=== PATIENT | female | born 1970 | race Caucasian/White ===

== ENCOUNTER 2018-11-23 10:39 | Inpatient (IN) | payer BC ==
[2018-11-23] VITALS (10 sets, daily range): BP systolic 115–168; BP diastolic 63–85
[~2018-11-23] VITALS: Ht 165.1 cm; Wt 115.0 kg
--- NOTE | 2018-11-23 11:06 | PHYS DOC ---
Past Medical History Past Medical History: Asthma Past Surgical History: Tonsillectomy Additional Past Surgical Histo: LEFT KNEE ATHROSCOPY Alcohol Use: Occasionally Drug Use: None Adult General Chief Complaint Chief Complaint: ANKLE PROBLEM HPI HPI Patient is a 48 year old female was brought here by EMS for evaluation of right ankle injury. Patient said she was walking outside, slipped on the ice and her right ankles broke, not able to get up and put any weight on it. Patient denied any knee pain, no back pain, no hip pain. Patient denied any other injury. EMS was called, they gave her a total of 150 mcg of Fentanyl IV on route here. Patient just had some water this morning. Patient has history of asthma. She is not on any blood thinner. No previous allergy to anesthesia. Review of Systems Review of Systems Constitutional: Denies fever or chills [] Eyes: Denies change in visual acuity, redness, or eye pain [] HENT: Denies nasal congestion or sore throat [] Respiratory: Denies cough or shortness of breath [] Cardiovascular: No additional information not addressed in HPI [] GI: Denies abdominal pain, nausea, vomiting, bloody stools or diarrhea [] : Denies dysuria or hematuria [] Musculoskeletal:Positive for right ankle pain. Integument: Denies rash or skin lesions [] Neurologic: Denies headache, focal weakness or sensory changes [] Endocrine: Denies polyuria or polydipsia [] All other systems were reviewed and found to be within normal limits, except as documented in this note. Current Medications Current Medications Current Medications Medications (Trade) Dose Ordered Sig/Chapito Start Time Stop Time Status Last Admin Dose Admin Fentanyl Citrate (Fentanyl 2ml Vial) 50 mcg PRN Q1HR PRN 11/23/18 13:15 11/24/18 13:14 11/23/18 14:57 50 MCG Ondansetron HCl (Zofran) 4 mg PRN Q8HRS PRN 11/23/18 13:15 11/24/18 13:14 Propofol (Diprivan) 50 mg 1X ONCE 11/23/18 11:15 11/23/18 11:16 DC 11/23/18 11:58 50 MG Sodium Chloride 1,000 ml @ 75 mls/hr [id number] 11/23/18 13:08 11/24/18 13:07 11/23/18 19:17 75 MLS/HR Allergies Allergies Physical Exam Physical Exam Constitutional: Well developed, well nourished, no acute distress, non-toxic appearance. [] HENT: Normocephalic, atraumatic, bilateral external ears normal, oropharynx moist, no oral exudates, nose normal. [] Eyes: PERRLA, EOMI, conjunctiva normal, no discharge. [] Neck: Normal range of motion, no tenderness, supple, no stridor. [] Cardiovascular:Heart rate regular rhythm, no murmur [] Lungs & Thorax: Bilateral breath sounds clear to auscultation [] Abdomen: Bowel sounds normal, soft, no tenderness, no masses, no pulsatile masses. [] Skin: Warm, dry, no erythema, no rash. [] Back: No tenderness, no CVA tenderness. [] Extremities: Right ankle with obvious deformity consistent with fracture and dislocation, no open wound. There is good capillary refill in right toes, STRONG DORSALIS PEDIS PULSE, There is moderate soft tissue swelling. No evidence of compartment syndrome. There is no tender to palpation in proximal right leg. Neurologic: Alert and oriented X 3, normal motor function, normal sensory function, no focal deficits noted. [] Psychologic: Affect normal, judgement normal, mood normal. [] Current Patient Data Vital Signs Vital Signs Date Time Temp Pulse Resp B/P (MAP) Pulse Ox O2 Delivery O2 Flow Rate FiO2 11/23/18 11:55 94 15 168/71 2.0 100 14 2.0 101 14 2.0 89 13 2.0 94 9 93 20 90 11 91 13 92 14 92 14 11/23/18 11:17 99 Room Air 11/23/18 10:51 98.0 98.0 EKG EKG [] Radiology/Procedures Radiology/Procedures [facility] [address] [place] [address] IMAGING REPORT Signed PATIENT: CONSTANTIN HOUSTON ACCOUNT: [id number] : 1970 LOCATION: ER AGE: 48 SEX: F EXAM STATUS: PRE ER ORD. PHYSICIAN: TRIPP MCGUIRE DO REASON: right ankle injury, pt slipped on ice. PROCEDURE: ANKLE RIGHT 2V ANKLE RIGHT 2V History: PT STATES SHE SLIPPED ON ICE THIS AM, OBVIOUS DEFORMITY. . Comparison: None are available Oblique fracture of the distal fibula. Lateral displacement and angulation of the distal fragment. Fracture of the medial malleolus and possibly of the posterior malleolus of the distal tibia. There is displacement of the talus laterally relative to the tibia. The medial malleolar fragment is also displaced medially away from the tibia with the talus. There is also posterior displacement of the talus and malleolar fragments relative to the tibia. Degenerative changes are identified. Calcaneal enthesophyte. IMPRESSION: Bimalleolar or trimalleolar displaced fractures, with tibiotalar dislocation. Electronically signed by: Chava Paredes MD (11/23/2018 11:23 AM) [facility] DICTATED and SIGNED BY: CHAVA PAREDES MD DATE: 11/23/18 1120 [][facility] [address] [place], [place] [id number] IMAGING REPORT Signed PATIENT: CONSTANTIN HOUSTON ACCOUNT: [id number] : 1970 LOCATION: [address] [place] [address] AGE: 48 SEX: F EXAM STATUS: ADM IN ORD. PHYSICIAN: TRIPP MCGUIRE DO REASON: POST FRACTURE, DISLOCATION REDUCTION PROCEDURE: ANKLE RIGHT 2V ANKLE RIGHT 2V History: POST REDUCTION ANKLE. Comparison: Radiographs from 10:41 AM Partial reduction of the tibiotalar dislocation. There is mild residual lateral talar shift. Previously seen posterior talar shift has reduced. Trimalleolar fractures are identified. Chronic appearing ossicle dorsal to the talonavicular joint. IMPRESSION: Trimalleolar fractures. Partial tibiotalar reduction. Electronically signed by: Chava Paredes MD (11/23/2018 1:50 PM) [facility] DICTATED and SIGNED BY: CHAVA PAREDES MD DATE: 11/23/18 8218 Course & Med Decision Making Course & Med Decision Making Pertinent Labs and Imaging studies reviewed. (See chart for details) DISCUSSED WITH ORTHOPEDIC SURGEON PROJECT MANAGER/DESIGN MANAGER, DR. ARTIE VALDEZ, RECOMMENDED TO ADMIT PATIENT FOR DEFINITIVE ORIF. Dragon Disclaimer Dragon Disclaimer This electronic medical record was generated, in whole or in part, using a voice recognition dictation system. Departure Departure Impression: Primary Impression: Closed right ankle fracture Disposition: ADMITTED INPATIENT Admitting Physician: Nette Napoles Condition: STABLE Referrals: NO PCP (PCP) MODERATE SEDATION ASSESSMENT* RISKS/ALTERNATIVES Risks/Alternatives Risks and alternatives of this type of sedation and procedure discussed with: RISK/ALTERNATIVES: Patient H & P ON CHART H & P H & P on chart and reviewed for co-morbid conditions and appropriate labs. H&P ON CHART: Yes STATUS PREG STATUS ASSESSED: Yes MEDS/ALLERGIES REVIEWED Meds/Allergies Reviewed Medications and Allergies including time and route of recently administered narcotics and sedatives. MEDS/ALLERGIES REVIEWED: Yes ASA RATING ASA RATING: I AIRWAY ASSESSMENT Airway Assessment Airway patency, oral function limitations, presence of caps, crowns, dentures, partials, and ability to extend neck assessed. AIRWAY ASSESSMENT: Yes MALLAMPATI SCORE MALLAMPATI SCORE: II PRE-SEDATION ASSESSMENT PRE-SEDATION ASSESSMENT: Yes Splinting [PATIENT/GUARDIAN/FAMILY:"Patient"] informed of findings. The fractured dislocated right ankle was reduced by this physician by traction and manipulation, a posterior short leg splint with stir up was applied by this physician, ortho-glass material was used.. The splint is checked by this physician with good stabilization of the injury. Distal capillary refill {pe heart capillary fill: "normal"] and distal neurologic function [Neuro:"intact"] . Patient tolerated procedure well. Procedural Sedation Proc Sed Indication: right ankle fracture and dislocation. Consent: I have discussed with the patient and/or the patient bank representative the indication, alternatives, and the possible risks and /or complications of the planned procedure and the anesthesia methods. The patient and/or patient bank representative appear to understand and agree to proceed. Pre-Sedation Documentation and Exam: Patient was awake, alert, oriented, no acute distress, lung sound clear, heart with RRR, NO MURMUR. NO FOCAL NEUROLOGICAL DEFICIT. Airway Assessment: normal. Prior History of Anesthesia Complications: none. ASA Classification: 1 Sedation/ Anesthesia Plan: IV PROPOFOL AND FENTANYL Medications Used: see nursing notes. Monitoring and Safety: The patient was placed on a potline monitor and vital signs, pulse oximetry and level of consciousness were continuously evaluated throughout the procedure. The patient was closely monitored until recovery from the medications was complete and the patient had returned to baseline status. Respiratory therapy was on standby at all times during the procedure. (The following sections must be completed) Post-Sedation Vital Signs: [EDM.VS] Post-Sedation Exam: Patient was awake, alert, oriented, no focal neurological deficit, back to her preprocedure baseline. Complications: none. Vital Signs Vital Signs Date Time Temp Pulse Resp B/P (MAP) Pulse Ox O2 Delivery O2 Flow Rate FiO2 11/23/18 11:55 94 15 168/71 2.0 100 14 2.0 101 14 2.0 89 13 2.0 94 9 93 20 90 11 91 13 92 14 92 14 11/23/18 11:17 99 Room Air 11/23/18 10:51 98.0 98.0 TRIPP MCGUIRE DO Nov 23, 2018 11:06
[2018-11-23] MEDS ORDERED: ONDANSETRON PF 4 MG/2 ML VIAL. IV ONE (11:15)
[2018-11-23] MEDS ORDERED: PROPOFOL 10 MG/ML (20ML) VIAL. IV ONE (11:15)
[2018-11-23] MEDS ORDERED: fentaNYL PF VIAL 100 MCG/2 ML VIAL IV ONE ×2 (11:15→12:30)
[2018-11-23] MEDS ORDERED: IV NORMAL SALINE 1000ML BAG 1,000 ML IV ONE (11:15)
--- NOTE | 2018-11-23 11:26 | RAD ---
ANKLE RIGHT 2V History: PT STATES SHE SLIPPED ON ICE THIS AM, OBVIOUS DEFORMITY. . Comparison: None are available Oblique fracture of the distal fibula. Lateral displacement and angulation of the distal fragment. Fracture of the medial malleolus and possibly of the posterior malleolus of the distal tibia. There is displacement of the talus laterally relative to the tibia. The medial malleolar fragment is also displaced medially away from the tibia with the talus. There is also posterior displacement of the talus and malleolar fragments relative to the tibia. Degenerative changes are identified. Calcaneal enthesophyte. IMPRESSION: Bimalleolar or trimalleolar displaced fractures, with tibiotalar dislocation. Electronically signed by: Chava Paredes MD (11/23/2018 11:23 AM) [facility]
[2018-11-23] MEDS ORDERED: fentaNYL PF VIAL 100 MCG/2 ML VIAL IV PRN ×3 (13:15→20:30)
[2018-11-23] MEDS ORDERED: ONDANSETRON PF 4 MG/2 ML VIAL. IV PRN ×2 (13:15→16:45)
[2018-11-23] MEDS: IV NORMAL SALINE 1000ML BAG 1,000 ML IV SCH ×2 (13:39→19:17)
--- NOTE | 2018-11-23 13:53 | RAD ---
ANKLE RIGHT 2V History: POST REDUCTION ANKLE. Comparison: Radiographs from 10:41 AM Partial reduction of the tibiotalar dislocation. There is mild residual lateral talar shift. Previously seen posterior talar shift has reduced. Trimalleolar fractures are identified. Chronic appearing ossicle dorsal to the talonavicular joint. IMPRESSION: Trimalleolar fractures. Partial tibiotalar reduction. Electronically signed by: Chava Paredes MD (11/23/2018 1:50 PM) [facility]
--- NOTE | 2018-11-23 15:13 | PDOC2 ---
CONSULT Date of Consult Date of Consult DATE: 11/23/18 TIME: 14:59 Reason for Consult Reason for Consult: Displaced right ankle fracture dislocation Identification/Chief Complaint Chief Complaint Right ankle pain and deformity Source Source: Chart review, Patient History of Present Illness Reason for Visit: This 48-year-old slipped on ice in her driveway at 9:30 this morning, and describes immediate ankle pain and deformity. She was brought to the hospital by EMS. She had a closed reduction in the emergency room at approximately 11 AM. X-rays show satisfactory reduction although mildly incomplete. She denies any other pain or deformity. 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 She had a sip water about 7 AM but has not had anything to eat today. Past Medical History Past Medical History Asthma, hip pain, restless leg syndrome, her PCP is HERMELINDA MARQUEZ RN, [facility] in [facility] Pulmonary: Asthma Musculoskeletal: low back pain Past Surgical History Past Surgical History Left knee arthroscopy, she think she has some knee arthritis now. Tonsillectomy. Gallbladder. 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 She lives with her brother, [id number], 3 nieces, a nephew, and 2 foster children. They have multiple animals such as alpacas. She has chewed tobacco since about 18 years old. She does not use a cane or a walker. No cigarette smoking. Occasional alcohol. No recreational drug use. No Drugs: None Lives: with Family Current Problem List Problem List Problems Medical Problems: (1) Closed right ankle fracture Status: Acute Current Medications Current Medications Current Medications Fentanyl Citrate (Fentanyl 2ml Vial) 75 mcg 1X ONCE IV Last administered on at 11:17; Start 11/23/18 at 11:15; Stop 11/23/18 at 11:16; Status DC Ondansetron HCl (Zofran) 8 mg 1X ONCE IV Last administered on 11/23/18at 11:14 ; Start 11/23/18 at 11:15; Stop 11/23/18 at 11:16; Status DC Sodium Chloride 1,000 ml @ 1,000 mls/hr 1X ONCE IV Last administered on at 11:18; Start 11/23/18 at 11:15; Stop 11/23/18 at 12:14; Status DC Propofol (Diprivan) 50 mg 1X ONCE IV Last administered on 11/23/18at 11:58; Start 11/23/18 at 11:15; Stop 11/23/18 at 11:16; Status DC Fentanyl Citrate (Fentanyl 2ml Vial) 75 mcg 1X ONCE IV Last administered on at 13:38; Start 11/23/18 at 12:30; Stop 11/23/18 at 12:31; Status DC Ondansetron HCl (Zofran) 4 mg PRN Q8HRS PRN IV NAUSEA/VOMITING; Start 11/23/18 at 13:15; Stop 11/24/18 at 13:14 Fentanyl Citrate (Fentanyl 2ml Vial) 50 mcg PRN Q1HR PRN IV PAIN Last administered on 11/23/18at 14:57; Start 11/23/18 at 13:15; Stop 11/24/18 at 13:14 Sodium Chloride 1,000 ml @ 75 mls/hr [id number] IV Last administered on at 13:39; Start 11/23/18 at 13:08; Stop 11/24/18 at 13:07 Allergies Allergies: Coded Allergies: No Known Drug Allergies (Unverified , 11/23/18) ROS Review of System She has been having some low back pain recently and has an MRI of her low back scheduled. She's had quite a bit of right hip pain, but x-rays were normal. She is on diclofenac for that and the hip pain is getting somewhat better. She takes Cymbalta as well as the diclofenac for the hip pain. She takes gabapentin for restless leg syndrome. She takes Singulair and Advair for asthma. She uses cyclobenzaprine. Albuterol inhaler. Occasional irritable bowel symptoms, possibly diet related. She had blood in her stool once in 2011 felt related to a bacterial colitis and resolved. Occasional shortness of breath. Denies metal allergy. Can wear regular earrings, does not need hypoallergenic earrings. Eyes: No Double vision HEENT: No: Heacaches Hematological and Lymphatic: YES: Brusing (bruises easily); No: Blood Clots Respiratory: YES: Shortness of breath (with asthma, no change recently) Cardiovascular: No Chest Pain Gastrointestinal: Yes Diarrhea (occasional); No Nausea, No Vomiting, No Constipation Genitourinary: No Dysuria, No Hematuria Musculoskeletal: Yes Joint Pain, Yes Pain In: (low back, left knee) Physical Exam General: Alert, Cooperative, No acute distress HEENT: Atraumatic Lungs: Normal air movement Heart: Regular rate Abdomen: Soft Extremities: No clubbing, No cyanosis, No edema, Normal pulses, Other (the right ankle is in a splint. The skin is reported as intact. There is no gross deformity at this time. She can dorsiflex and plantar flex the toes and has intact sensation at the toes. She has a tape/Band-Aid on the great toe where she removed her great toenail.) Neuro: Normal speech, Normal tone, Sensation intact Psych/Mental Status: Mental status NL, Mood NL MUSCULOSKELETAL: Abnormal exam of right (ankle as above) Vitals VITALS Vital Signs Date Time Temp Pulse Resp B/P (MAP) Pulse Ox O2 Delivery O2 Flow Rate FiO2 11/23/18 14:57 Room Air 11/23/18 14:00 97.6 108 16 150/84 (106) 99 97.6 11/23/18 11:55 2.0 2.0 2.0 2.0 Images Images Reports reviewed, images independently reviewed. Initial x-rays showed a displaced right ankle fracture, and the reduction more clearly shows the trimalleolar component, with fractures medial malleolus, lateral malleolus and posterior malleolus. Assessment/Plan Assessment/Plan Displaced trimalleolar fracture of right lower leg, initial encounter for closed fracture [id number] Asthma I discussed options for treatment with her. We briefly discussed nonoperative treatment which is primarily historical for displaced trimalleolar ankle fractures. Nonoperative treatment would likely give a poor result with chronic deformity and arthritis. I described plate and screw fixation of the lateral malleolus, and screw fixation of the medial malleolus, and doubtful fixation of the posterior malleolus. I discussed the possible need of syndesmosis fixation although unlikely. We discussed the potential for surgery today, before swelling makes surgery difficult. I will reassess the soft tissues when she is asleep, and if it is too swollen today we may need to wait 10-14 days. We can also plan to wait a week or two but that delays her recovery and may make surgery more difficult. We discussed the risks of surgery, such as bleeding, infection, blistering and bruising, neurovascular injury, need for syndesmosis screw removal in 3-4 months if used, possible need for hardware removal in about a year, blood clots, arthritis, or other potential surgical or anesthetic complications. All of her questions about surgery were answered and she desires to proceed. I will schedule surgery for today. She agrees with this plan. ARTIE VALDEZ MD Nov 23, 2018 15:13
[2018-11-23 16:10] LABS: HEMATOCRIT 38.9 % (36.0-47.0); HEMOGLOBIN 12.9 g/dL (12.0-15.5); RED BLOOD COUNT 4.31 x10^6/uL (3.50-5.40); RED CELL DISTRIBUTION WIDTH 13.7 % (11.5-14.5)
[2018-11-23 16:26] LABS: ALBUMIN 3.1 g/dL (3.4-5.0); ALBUMIN/GLOBULIN RATIO 0.9 (1.0-1.7); CALCIUM 8.2 mg/dL (8.5-10.1); CREATININE 0.8 mg/dL (0.6-1.0); GFR 76.2; POTASSIUM 3.9 mmol/L (3.5-5.1); TOTAL BILIRUBIN 0.4 mg/dL (0.2-1.0); TOTAL PROTEIN 6.5 g/dL (6.4-8.2)
[2018-11-23] MEDS ORDERED: IV RINGERS,LACTATED 1000ML 1,000 ML IV SCH (16:34)
[2018-11-23] MEDS ORDERED: fentaNYL PF VIAL 250 MCG/5 ML VIAL ONE (16:42)
[2018-11-23] MEDS ORDERED: LIDOCAINE 1% PF 2 ML VIAL. ID PRN (16:45)
[2018-11-23] MEDS ORDERED: HYDROmorphone 2 MG/ML VIAL IV PRN (16:45)
[2018-11-23] MEDS ORDERED: BUPIVACAINE-EPI 0.25%-1:200000 MPF 30 ML VIAL. ONE (16:52)
--- NOTE | 2018-11-23 18:58 | PDOC1 ---
History and Physical Date of Admission Date of Admission DATE: 11/23/18 TIME: 18:57 History of Present Illness History of Present Illness Juani is a 48-year-old female, admit with ankle fracture, she slipped on ice in her driveway at 9:30 this morning, marked pain to the ER, Dr. Guy was able to reduce, still painful, no prior fracture, prev. 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 [employer], w Past Medical History Pulmonary: Asthma Musculoskeletal: low back pain Past Surgical History Past Surgical History: Arthroscopy, Cholecystectomy, Tonsillectomy Family History Family History: Adopted Social History Smoke: No Drugs: None Current Problem List Problem List Problems Medical Problems: (1) Closed right ankle fracture Status: Acute Current Medications Current Medications Current Medications Fentanyl Citrate (Fentanyl 2ml Vial) 75 mcg 1X ONCE IV Last administered on at 11:17; Start 11/23/18 at 11:15; Stop 11/23/18 at 11:16; Status DC Ondansetron HCl (Zofran) 8 mg 1X ONCE IV Last administered on 11/23/18at 11:14 ; Start 11/23/18 at 11:15; Stop 11/23/18 at 11:16; Status DC Sodium Chloride 1,000 ml @ 1,000 mls/hr 1X ONCE IV Last administered on at 11:18; Start 11/23/18 at 11:15; Stop 11/23/18 at 12:14; Status DC Propofol (Diprivan) 50 mg 1X ONCE IV Last administered on 11/23/18at 11:58; Start 11/23/18 at 11:15; Stop 11/23/18 at 11:16; Status DC Fentanyl Citrate (Fentanyl 2ml Vial) 75 mcg 1X ONCE IV Last administered on at 13:38; Start 11/23/18 at 12:30; Stop 11/23/18 at 12:31; Status DC Ondansetron HCl (Zofran) 4 mg PRN Q8HRS PRN IV NAUSEA/VOMITING; Start 11/23/18 at 13:15; Stop 11/24/18 at 13:14 Fentanyl Citrate (Fentanyl 2ml Vial) 50 mcg PRN Q1HR PRN IV PAIN Last administered on 11/23/18at 14:57; Start 11/23/18 at 13:15; Stop 11/24/18 at 13:14 Sodium Chloride 1,000 ml @ 75 mls/hr [id number] IV Last administered on at 13:39; Start 11/23/18 at 13:08; Stop 11/24/18 at 13:07 Cefazolin Sodium/ Dextrose 50 ml @ 100 mls/hr 1X PREOP PRN IV SEE COMMENTS Last administered on 11/23/18at 17:24; Start 11/23/18 at 15:00 Ondansetron HCl (Zofran) 4 mg PRN Q6HRS PRN IV NAUSEA/VOMITING; Start 11/23/18 at 16:45; Stop 11/24/18 at 16:44 Fentanyl Citrate (Fentanyl 2ml Vial) 25 mcg PRN Q5MIN PRN IV MILD PAIN; Start 11/23/18 at 16:45; Stop 11/24/18 at 16:44 Fentanyl Citrate (Fentanyl 2ml Vial) 50 mcg PRN Q5MIN PRN IV MODERATE TO SEVERE PAIN; Start 11/23/18 at 16:45; Stop 11/24/18 at 16:44 Morphine Sulfate (Morphine Sulfate) 1 mg PRN Q10MIN PRN IV SEVERE PAIN; Start 11/23/18 at 16:45; Stop 11/24/18 at 16:44 Ringer's Solution 1,000 ml @ 30 mls/hr Q24H IV ; Start 11/23/18 at 16:34; Stop 11/24/18 at 04:33 Lidocaine HCl (Xylocaine-Mpf 1% 2ml Vial) 2 ml 1X PRN PRN ID IV START; Start at 16:45; Stop 11/24/18 at 16:44 Hydromorphone HCl (Dilaudid) 0.5 mg PRN Q10MIN PRN IV SEV PAIN, Second choice; Start 11/23/18 at 16:45; Stop 11/24/18 at 16:44 Prochlorperazine Edisylate (Compazine) 5 mg PACU PRN PRN IV NAUSEA, MRX1; Start 11/23/18 at 16:45; Stop 11/24/18 at 16:44 Fentanyl Citrate (Fentanyl 5ml Vial) 250 mcg STK-MED ONCE .ROUTE ; Start at 16:42; Stop 11/23/18 at 16:43; Status DC Bupivacaine HCl/ Epinephrine Bitart (Sensorcaine-Epi 0.25%-1:680281 Mpf) 30 ml STK-MED ONCE .ROUTE Last administered on 11/23/18at 17:40; Start 11/23/18 at 16: 52; Stop 11/23/18 at 16:53; Status DC Allergies Allergies: Coded Allergies: No Known Drug Allergies (Unverified , 11/23/18) ROS General: No: Chills, Night Sweats, Fatigue, Malaise, Appetite, Other PSYCHOLOGICAL ROS: No: Anxiety, Behavioral Disorder, Concentration difficultie , Decreased libido, Depression, Disorientation, Hallucinations, Hostility, Irritablity, Memory difficulties, Mood Swings, Obsessive thoughts, Physical abuse, Sexual abuse, Sleep disturbances, Suicidal ideation, Other Eyes: No Blurry vision, No Decreased vision, No Double vision, No Dry eyes, No Excessive tearing, No Eye Pain, No Itchy Eyes, No Loss of vision, No Photophobia , No Scotomata, No Uses contacts, No Uses glasses, No Other HEENT: No: Heacaches, Visual Changes, Hearing change, Nasal congestion, Nasal discharge, Oral lesions, Sinus pain, Sore Throat, Epistaxis, Sneezing, Snoring, Tinnitus, Vertigo, Vocal changes, Other Respiratory: No: Cough, Hemoptysis, Orthopnea, Pleuritic Pain, Shortness of breath, SOB with excertion, Sputum Changes, Stridor, Tachypnea, Wheezing, Other Cardiovascular: No Chest Pain, No Palpitations, No Orthopnea, No Paroxysmal Noc. Dyspnea, No Edema, No Lt Headedness, No Other Gastrointestinal: No Nausea, No Vomiting, No Abdominal Pain, No Diarrhea, No Constipation, No Melena, No Hematochezia, No Other Genitourinary: No Dysuria, No Frequency, No Incontinence, No Hematuria, No Retention, No Discharge, No Urgency, No Pain, No Flank Pain, No Other, No , No , No , No , No , No , No Musculoskeletal: Yes Joint Pain, Yes Joint Stiffness, Yes Pain In: (ankle); No Gait Disturbance, No Joint Swelling, No Muscle Pain, No Muscular Weakness , No Swelling In:, No Other Neurological: No Behavorial Changes, No Bowel/Bladder ControlChng, No Confusion , No Dizziness, No Gait Disturbance, No Headaches, No Impaired Coord/balance, No Memory Loss, No Numbness/Tingling, No Seizures, No Speech Problems, No Tremors, No Visual Changes, No Weakness, No Other Skin: Yes Dry Skin; No Eczema, No Hair Changes, No Lumps, No Mole Changes, No Mottling, No Nail Changes, No Pruritus, No Rash, No Skin Lesion Changes, No Other, No Acne Physical Exam General: Alert, Oriented X3, Cooperative, mild distress HEENT: Atraumatic, PERRLA, Mucous membr. moist/pink Lungs: Clear to auscultation Heart: S1S2, no gallops, no murmurs Abdomen: Normal bowel sounds, Soft Extremities: No clubbing, No cyanosis, No edema, Normal pulses Skin: No rashes, No significant lesion Neuro: Normal gait, Normal speech, Normal tone, Cranial nerves 3-12 NL Psych/Mental Status: Mood NL Vitals Vitals Vital Signs Date Time Temp Pulse Resp B/P (MAP) Pulse Ox O2 Delivery O2 Flow Rate FiO2 11/23/18 16:36 97.0 92 16 140/62 99 Room Air 97.0 11/23/18 11:55 2.0 2.0 2.0 2.0 Labs Labs Laboratory Tests Test 11/23/18 16:00 White Blood Count 9.0 x10^3/uL (4.0-11.0) Red Blood Count 4.31 x10^6/uL (3.50-5.40) Hemoglobin 12.9 g/dL (12.0-15.5) Hematocrit 38.9 % (36.0-47.0) Mean Corpuscular Volume 90 fL (79-100) Mean Corpuscular Hemoglobin 30 pg (25-35) Mean Corpuscular Hemoglobin Concent 33 g/dL (31-37) Red Cell Distribution Width 13.7 % (11.5-14.5) Platelet Count 196 x10^3/uL (140-400) Sodium Level 143 mmol/L (136-145) Potassium Level 3.9 mmol/L (3.5-5.1) Chloride Level 107 mmol/L (98-107) Carbon Dioxide Level 29 mmol/L (21-32) Anion Gap 7 (6-14) Blood Urea Nitrogen 14 mg/dL (7-20) Creatinine 0.8 mg/dL (0.6-1.0) Estimated GFR (Cockcroft-Gault) 76.2 BUN/Creatinine Ratio 18 (6-20) Glucose Level 94 mg/dL (70-99) Calcium Level 8.2 mg/dL (8.5-10.1) Total Bilirubin 0.4 mg/dL (0.2-1.0) Aspartate Amino Transf (AST/SGOT) 15 U/L (15-37) Alanine Aminotransferase (ALT/SGPT) 24 U/L (14-59) Alkaline Phosphatase 115 U/L (46-116) Total Protein 6.5 g/dL (6.4-8.2) Albumin 3.1 g/dL (3.4-5.0) Albumin/Globulin Ratio 0.9 (1.0-1.7) Laboratory Tests Test 11/23/18 16:00 White Blood Count 9.0 x10^3/uL (4.0-11.0) Red Blood Count 4.31 x10^6/uL (3.50-5.40) Hemoglobin 12.9 g/dL (12.0-15.5) Hematocrit 38.9 % (36.0-47.0) Mean Corpuscular Volume 90 fL (79-100) Mean Corpuscular Hemoglobin 30 pg (25-35) Mean Corpuscular Hemoglobin Concent 33 g/dL (31-37) Red Cell Distribution Width 13.7 % (11.5-14.5) Platelet Count 196 x10^3/uL (140-400) Sodium Level 143 mmol/L (136-145) Potassium Level 3.9 mmol/L (3.5-5.1) Chloride Level 107 mmol/L (98-107) Carbon Dioxide Level 29 mmol/L (21-32) Anion Gap 7 (6-14) Blood Urea Nitrogen 14 mg/dL (7-20) Creatinine 0.8 mg/dL (0.6-1.0) Estimated GFR (Cockcroft-Gault) 76.2 BUN/Creatinine Ratio 18 (6-20) Glucose Level 94 mg/dL (70-99) Calcium Level 8.2 mg/dL (8.5-10.1) Total Bilirubin 0.4 mg/dL (0.2-1.0) Aspartate Amino Transf (AST/SGOT) 15 U/L (15-37) Alanine Aminotransferase (ALT/SGPT) 24 U/L (14-59) Alkaline Phosphatase 115 U/L (46-116) Total Protein 6.5 g/dL (6.4-8.2) Albumin 3.1 g/dL (3.4-5.0) Albumin/Globulin Ratio 0.9 (1.0-1.7) VTE Prophylaxis Ordered VTE Prophylaxis Devices: No VTE Pharmacological Prophylaxi: Yes Assessment/Plan Assessment/Plan displaced trimalleolar fracture right s/p ORIF asthma chronicback pain, obesity, BMI 42 LETY LEWIS MD Nov 23, 2018 18:58
[2018-11-23] MEDS ORDERED: ONDANSETRON PF 4 MG/2 ML VIAL. ONE (19:08)
[2018-11-23] MEDS ORDERED: PROPOFOL 20 ML IV ONE (19:08)
[2018-11-23] MEDS ORDERED: LIDOCAINE 2% PF 5 ML VIAL. ONE (19:08)
[2018-11-23] MEDS ORDERED: DEXAMETHASONE SOD PHOS 20 MG/5 ML VIAL. ONE (19:08)
[2018-11-23] MEDS ORDERED: SEVOFLURANE > 120 MINUTES. IH ONE (19:08)
[2018-11-23] MEDS: PROCHLORPERAZINE 10 MG/2 ML VIAL. IV PRN ×2 (19:15→19:31)
[2018-11-23] MEDS: MORPHINE SULFATE 4 MG/ML VIAL. IV PRN ×4 (19:15→19:58)
[2018-11-23] MEDS: fentaNYL PF VIAL 100 MCG/2 ML VIAL IV PRN ×2 (19:16→19:31)
--- NOTE | 2018-11-23 19:28 | PDOC4 ---
Operative Note Operative Note Date of Procedure: November 23, 2018 Pre-Op Diagnosis: Displaced trimalleolar fracture of right lower leg, initial encounter for closed fracture S82.851A Post-Op Diagnosis: same Procedure: Open treatment trimalleolar ankle fracture, with internal fixation, medial and lateral malleolus without fixation of posterior lip CPT 41984, right ankle Anesthesia Type: General Surgeon: Artie López MD EBL: 50 mL Specimens Obtained: none Drains: none Complications: none Tourniquet time: 40 minutes Tourniquet pressure: 350 mm Hg Implants: Synthes stainless small fragment 3.5 mm Findings: bone quality and tissue quality both were very poor, considering age of 48 years. Screws easy to strip, sutures easily pulled out of subcutaneous tissues similar to what is seen in an elderly fragile patient. INDICATIONS FOR PROCEDURE: The patient is a 48 year-old with a displaced unstable right ankle fracture. The patient and I discussed the risks and benefits of operative treatment. Surgical fixation likely will give a better long-term outcome. We talked about the risks of the operative fixation such as the risks of bleeding, infection, blood clots, need for hardware removal, stiffness or other potential surgical or anesthetic complications. All of the patient's questions about surgery were answered and they desired to proceed. Written consent was obtained. PROCEDURE IN DETAIL: The patient was identified in the preoperative holding area. The correct right lower extremity was marked by me. The patient was taken to the operating room, where a general anesthetic was used. Preoperative antibiotics were given intravenously. A timeout procedure was performed. A padded tourniquet was used on the upper right thigh. The limb was prepared in sterile fashion with ChloraPrep solution, and sterile drapes were applied with a sterile glove over the toes and heel. An Esmarch bandage was used to exsanguinate the limb and the tourniquet was inflated. The direct lateral approach to the distal fibula was used. Sharp dissection was used and Bovie electrocautery was used as needed for hemostasis. The fracture was easily identified and exposed. The fracture was gapped open with traction, and fracture hematoma was cleared with curettes, rongeurs and irrigation. I then used longitudinal traction and internal rotation to help reduce the fracture, and a lobster claw bone clamp was used to now reduce the fracture. An interfragmentary lag screw was placed using a threaded hole and a gliding hole, across the fracture site to stabilize it, so that the bone clamp could be removed. I then applied a nonlocking 8 hole one-third tubular plate laterally. I contoured the very tip of the plate to fit the tip of the distal fibula. I applied cortical screws proximally and cancellous screws distally for rigid fixation across the fracture site to stabilize it. Satisfactory reduction and fixation was obtained of the fibula which was confirmed using the image intensifier. The small image intensifier was used throughout the procedure, and all the images were interpreted intraoperatively by me. A curvilinear approach was used to the medial malleolus. Sharp dissection was used and Bovie electrocautery was used for hemostasis. The saphenous vein was cauterized. There was traumatic extensive periosteal stripping in this patient who has poor tissue quality for her age. Fracture fragments were removed from the tibiotalar joint with copious irrigation. The fracture was held reduced with a reduction clamp, and then I used 2.5 mm drill bits to stabilize the fragment. The small image intensifier was used to confirm the reduction and placement of the drill bits. The drill bits were individually replaced with partially threaded 4.0 mm cancellous screws. I initially placed two 40 mm screws without washers, but the fixation did not seem adequate. I added washers , and changed one of the screw lengths to 45 mm. This achieved satisfactory fixation although not impressive. I now stressed the syndesmosis and the medial clear space was stable on image views. The posterior malleolus was checked on the image intensifier and was satisfactorily reduced, and is a small fragment without need for fixation. The tourniquet was released. Bovie electrocautery was used for hemostasis. Irrigation was used and the incision was closed in layers with #1 Vicryl, # 2-0 Vicryl and hector. Local anesthetic 30 mL of 0.25% bupivacaine with epinephrine with epinephrine was injected into the skin edges. Xeroform and a sterile dressing and a posterior and stirrup splint were applied. There were no apparent complications. ARTIE LÓPEZ MD Nov 23, 2018 19:28
[2018-11-23] MEDS ORDERED: DULO60CA6 PO (20:05)
[2018-11-23] MEDS ORDERED: MONT10TA9 PO (20:05)
[2018-11-23] MEDS ORDERED: DICL75TA PO (20:23)
[2018-11-23] MEDS ORDERED: GABA600T7 PO (20:23)
[2018-11-23] MEDS ORDERED: DULO30CA2 PO (20:23)
[2018-11-23] MEDS ORDERED: FLUT1DIS3 IH (20:23)
[2018-11-23] MEDS ORDERED: CYCL10TA2 PO (20:23)
[2018-11-23] MEDS ORDERED: KETOROLAC 15 MG/ML VIAL. IV PRN (20:30)
[2018-11-23] MEDS ORDERED: ALBUTEROL SULFATE 2.5 MG/3 ML NEBU. NEB PRN (20:45)
[2018-11-23] MEDS: CYCLOBENZAPRINE 10 MG TABLET. PO PRN (20:59)
[2018-11-23] MEDS ORDERED: BUDESONIDE 0.5 MG/2 ML NEBU. NEB ONE (21:00)
[2018-11-23] MEDS ORDERED: KETOROLAC 30 MG/ML VIAL. IV ONE (21:00)
[2018-11-23] MEDS: ALBUTEROL SULFATE 2.5 MG/3 ML NEBU. NEB SCH (21:00)
[2018-11-23] MEDS: oxyCODONE/APAP 7.5/325 1 TAB TABLET PO PRN (23:55)
[2018-11-24 03:00] VITALS: BP 115/70
[2018-11-24] MEDS: oxyCODONE/APAP 7.5/325 1 TAB TABLET PO PRN ×4 (03:59→19:53)
[2018-11-24] MEDS: ALBUTEROL SULFATE 2.5 MG/3 ML NEBU. NEB SCH ×4 (06:08→23:12)
[2018-11-24] MEDS: BUDESONIDE 0.5 MG/2 ML NEBU. NEB SCH ×2 (06:08→20:00)
[2018-11-24 07:59] VITALS: BP 106/73
[2018-11-24] MEDS ORDERED: ACETAMINOPHEN 500 MG TABLET PO PRN (08:30)
[2018-11-24] MEDS ORDERED: ONDANSETRON ODT 4 MG TAB.RAPDIS. PO PRN (08:30)
[2018-11-24] MEDS ORDERED: ONDANSETRON PF 4 MG/2 ML VIAL. IV PRN (08:30)
[2018-11-24] MEDS ORDERED: fentaNYL PF VIAL 100 MCG/2 ML VIAL IV PRN (08:30)
--- NOTE | 2018-11-24 08:59 | NUR ---
SW reviewed pt's medical chart and evaluated for potential dc needs. Pt is from home and was admitted for an ankle fracture. PT/OT has been ordered. SW will await PT/OT recommendations and proceed accordingly.
[2018-11-24] MEDS ORDERED: NON FORMULARY ITEM (Fluticasone/Salmeterol (Advair 250-50 Diskus) 1 PUFF) IH SCH (09:00)
[2018-11-24] MEDS: DULoxetine HCL 30 MG CAPSULE.DR PO SCH (09:00)
[2018-11-24] MEDS ORDERED: ALBU2.5V8 NEB (09:37)
[2018-11-24] MEDS ORDERED: OXYC1TAB19 PO (09:37)
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
[2018-11-24] MEDS: DICLOFENAC SODIUM 25 MG TABLET.DR PO SCH (10:00)
[2018-11-24] MEDS ORDERED: NEOMY/BACITR/POLYMYXIN OINT PACKET. TP PRN (10:15)
[2018-11-24] MEDS: CYCLOBENZAPRINE 10 MG TABLET. PO SCH (10:56)
[2018-11-24 11:16] VITALS: BP 128/75
--- NOTE | 2018-11-24 12:21 | PDOC ---
PROGRESS NOTES Subjective Subjective Doing well POD 1, wants to go home Objective Vital Signs Vital Signs Date Time Temp Pulse Resp B/P (MAP) Pulse Ox O2 Delivery O2 Flow Rate FiO2 11/24/18 11:16 97.7 101 16 128/75 (92) 97 Room Air 97.7 11/23/18 20:00 10.0 Physical Exam Splint intact. Toes NVI. Labs Laboratory Tests Test 11/23/18 16:00 White Blood Count 9.0 x10^3/uL (4.0-11.0) Red Blood Count 4.31 x10^6/uL (3.50-5.40) Hemoglobin 12.9 g/dL (12.0-15.5) Hematocrit 38.9 % (36.0-47.0) Mean Corpuscular Volume 90 fL (79-100) Mean Corpuscular Hemoglobin 30 pg (25-35) Mean Corpuscular Hemoglobin Concent 33 g/dL (31-37) Red Cell Distribution Width 13.7 % (11.5-14.5) Platelet Count 196 x10^3/uL (140-400) Sodium Level 143 mmol/L (136-145) Potassium Level 3.9 mmol/L (3.5-5.1) Chloride Level 107 mmol/L (98-107) Carbon Dioxide Level 29 mmol/L (21-32) Anion Gap 7 (6-14) Blood Urea Nitrogen 14 mg/dL (7-20) Creatinine 0.8 mg/dL (0.6-1.0) Estimated GFR (Cockcroft-Gault) 76.2 BUN/Creatinine Ratio 18 (6-20) Glucose Level 94 mg/dL (70-99) Calcium Level 8.2 mg/dL (8.5-10.1) Total Bilirubin 0.4 mg/dL (0.2-1.0) Aspartate Amino Transf (AST/SGOT) 15 U/L (15-37) Alanine Aminotransferase (ALT/SGPT) 24 U/L (14-59) Alkaline Phosphatase 115 U/L (46-116) Total Protein 6.5 g/dL (6.4-8.2) Albumin 3.1 g/dL (3.4-5.0) Albumin/Globulin Ratio 0.9 (1.0-1.7) 25-Hydroxy Vitamin D Total 22.1 ng/mL (30-100) Laboratory Tests Test 11/23/18 16:00 White Blood Count 9.0 x10^3/uL (4.0-11.0) Red Blood Count 4.31 x10^6/uL (3.50-5.40) Hemoglobin 12.9 g/dL (12.0-15.5) Hematocrit 38.9 % (36.0-47.0) Mean Corpuscular Volume 90 fL (79-100) Mean Corpuscular Hemoglobin 30 pg (25-35) Mean Corpuscular Hemoglobin Concent 33 g/dL (31-37) Red Cell Distribution Width 13.7 % (11.5-14.5) Platelet Count 196 x10^3/uL (140-400) Sodium Level 143 mmol/L (136-145) Potassium Level 3.9 mmol/L (3.5-5.1) Chloride Level 107 mmol/L (98-107) Carbon Dioxide Level 29 mmol/L (21-32) Anion Gap 7 (6-14) Blood Urea Nitrogen 14 mg/dL (7-20) Creatinine 0.8 mg/dL (0.6-1.0) Estimated GFR (Cockcroft-Gault) 76.2 BUN/Creatinine Ratio 18 (6-20) Glucose Level 94 mg/dL (70-99) Calcium Level 8.2 mg/dL (8.5-10.1) Total Bilirubin 0.4 mg/dL (0.2-1.0) Aspartate Amino Transf (AST/SGOT) 15 U/L (15-37) Alanine Aminotransferase (ALT/SGPT) 24 U/L (14-59) Alkaline Phosphatase 115 U/L (46-116) Total Protein 6.5 g/dL (6.4-8.2) Albumin 3.1 g/dL (3.4-5.0) Albumin/Globulin Ratio 0.9 (1.0-1.7) 25-Hydroxy Vitamin D Total 22.1 ng/mL (30-100) Assessment Assessment POD 1 ORIF ankle Plan Plan of Care ADA CHAING F/U 10-14 days my office Take ASA 325 mg po daily for 3 weeks ARTIE VALDEZ MD Nov 24, 2018 12:21
[2018-11-24 15:00] VITALS: BP 122/72
[2018-11-24 19:00] VITALS: BP 137/71
--- NOTE | 2018-11-24 20:19 | NUR ---
OK to leave pt's IV out per
[2018-11-24] MEDS ORDERED: MONTELUKAST SODIUM 10 MG TABLET. PO SCH (21:00)
[2018-11-24] MEDS ORDERED: GABAPENTIN 100 MG CAPSULE. PO SCH (21:00)
[2018-11-24 23:00] VITALS: BP 126/67
[2018-11-25 03:00] VITALS: BP 118/54
[2018-11-25] MEDS: oxyCODONE/APAP 7.5/325 1 TAB TABLET PO PRN ×3 (06:30→16:45)
[2018-11-25 07:00] VITALS: BP 140/94
[2018-11-25] MEDS: BUDESONIDE 0.5 MG/2 ML NEBU. NEB SCH (07:57)
[2018-11-25] MEDS: ALBUTEROL SULFATE 2.5 MG/3 ML NEBU. NEB SCH ×2 (07:57→11:41)
[2018-11-25] MEDS: DULoxetine HCL 30 MG CAPSULE.DR PO SCH (08:09)
[2018-11-25] MEDS: DICLOFENAC SODIUM 25 MG TABLET.DR PO SCH (08:09)
[2018-11-25] MEDS: CYCLOBENZAPRINE 10 MG TABLET. PO SCH (08:09)
--- NOTE | 2018-11-25 10:17 | PDOC ---
PROGRESS NOTES Chief Complaint Chief Complaint displaced trimalleolar fracture right s/p ORIF asthma chronicback pain, obesity, BMI 42 History of Present Illness History of Present Illness She had to work with physical therapy yesterday because she has steps at home Cleared by Ortho to go home I am also clearing to go home after PT today Wait for further recs from PT i.e., if need home health All Rx on chart Vitals Vitals Vital Signs Date Time Temp Pulse Resp B/P (MAP) Pulse Ox O2 Delivery O2 Flow Rate FiO2 11/25/18 08:18 Room Air 11/25/18 07:00 97.7 84 16 140/94 (109) 97 97.7 Physical Exam General: Alert, Oriented X3, Cooperative, mild distress Heart: Regular rate Abdomen: Normal bowel sounds, Soft Extremities: No clubbing, No cyanosis, No edema, Normal pulses Skin: No rashes, No significant lesion Review of Systems Review of Systems Right ankle pain otherwise the rest of ROS 14 point negative Assessment and Plan Assessmemt and Plan Problems Medical Problems: (1) Closed right ankle fracture Status: Acute Comment Review of Relevant I have reviewed the following items bebo (where applicable) has been applied. Labs Laboratory Tests Test 11/23/18 16:00 White Blood Count 9.0 x10^3/uL (4.0-11.0) Red Blood Count 4.31 x10^6/uL (3.50-5.40) Hemoglobin 12.9 g/dL (12.0-15.5) Hematocrit 38.9 % (36.0-47.0) Mean Corpuscular Volume 90 fL (79-100) Mean Corpuscular Hemoglobin 30 pg (25-35) Mean Corpuscular Hemoglobin Concent 33 g/dL (31-37) Red Cell Distribution Width 13.7 % (11.5-14.5) Platelet Count 196 x10^3/uL (140-400) Sodium Level 143 mmol/L (136-145) Potassium Level 3.9 mmol/L (3.5-5.1) Chloride Level 107 mmol/L (98-107) Carbon Dioxide Level 29 mmol/L (21-32) Anion Gap 7 (6-14) Blood Urea Nitrogen 14 mg/dL (7-20) Creatinine 0.8 mg/dL (0.6-1.0) Estimated GFR (Cockcroft-Gault) 76.2 BUN/Creatinine Ratio 18 (6-20) Glucose Level 94 mg/dL (70-99) Calcium Level 8.2 mg/dL (8.5-10.1) Total Bilirubin 0.4 mg/dL (0.2-1.0) Aspartate Amino Transf (AST/SGOT) 15 U/L (15-37) Alanine Aminotransferase (ALT/SGPT) 24 U/L (14-59) Alkaline Phosphatase 115 U/L (46-116) Total Protein 6.5 g/dL (6.4-8.2) Albumin 3.1 g/dL (3.4-5.0) Albumin/Globulin Ratio 0.9 (1.0-1.7) 25-Hydroxy Vitamin D Total 22.1 ng/mL (30-100) Medications Current Medications Fentanyl Citrate (Fentanyl 2ml Vial) 75 mcg 1X ONCE IV Last administered on 11:17; Start 11/23/18 at 11:15; Stop 11/23/18 at 11:16; Status DC Ondansetron HCl (Zofran) 8 mg 1X ONCE IV Last administered on 11/23/18at 11:14 ; Start 11/23/18 at 11:15; Stop 11/23/18 at 11:16; Status DC Sodium Chloride 1,000 ml @ 1,000 mls/hr 1X ONCE IV Last administered on at 11:18; Start 11/23/18 at 11:15; Stop 11/23/18 at 12:14; Status DC Propofol (Diprivan) 50 mg 1X ONCE IV Last administered on 11/23/18at 11:58; Start 11/23/18 at 11:15; Stop 11/23/18 at 11:16; Status DC Fentanyl Citrate (Fentanyl 2ml Vial) 75 mcg 1X ONCE IV Last administered on at 13:38; Start 11/23/18 at 12:30; Stop 11/23/18 at 12:31; Status DC Ondansetron HCl (Zofran) 4 mg PRN Q8HRS PRN IV NAUSEA/VOMITING; Start 11/23/18 at 13:15; Stop 11/24/18 at 13:14; Status DC Fentanyl Citrate (Fentanyl 2ml Vial) 50 mcg PRN Q1HR PRN IV PAIN Last administered on 11/23/18at 14:57; Start 11/23/18 at 13:15; Stop 11/24/18 at 13:14 ; Status DC Sodium Chloride 1,000 ml @ 75 mls/hr [id number] IV Last administered on at 19:17; Start 11/23/18 at 13:08; Stop 11/24/18 at 13:08; Status DC Cefazolin Sodium/ Dextrose 50 ml @ 100 mls/hr 1X PREOP PRN IV SEE COMMENTS Last administered on 11/23/18at 17:24; Start 11/23/18 at 15:00 Ondansetron HCl (Zofran) 4 mg PRN Q6HRS PRN IV NAUSEA/VOMITING; Start 11/23/18 at 16:45; Stop 11/24/18 at 16:44; Status DC Fentanyl Citrate (Fentanyl 2ml Vial) 25 mcg PRN Q5MIN PRN IV MILD PAIN; Start 11/23/18 at 16:45; Stop 11/24/18 at 16:44; Status DC Fentanyl Citrate (Fentanyl 2ml Vial) 50 mcg PRN Q5MIN PRN IV MODERATE TO SEVERE PAIN Last administered on 11/23/18at 19:31; Start 11/23/18 at 16:45; Stop 11/24/18 at 16:44; Status DC Morphine Sulfate (Morphine Sulfate) 1 mg PRN Q10MIN PRN IV SEVERE PAIN Last administered on 11/23/18at 19:58; Start 11/23/18 at 16:45; Stop 11/24/18 at 16:44 ; Status DC Ringer's Solution 1,000 ml @ 30 mls/hr Q24H IV ; Start 11/23/18 at 16:34; Stop 11/24/18 at 04:33; Status DC Lidocaine HCl (Xylocaine-Mpf 1% 2ml Vial) 2 ml 1X PRN PRN ID IV START; Start at 16:45; Stop 11/24/18 at 16:44; Status DC Hydromorphone HCl (Dilaudid) 0.5 mg PRN Q10MIN PRN IV SEV PAIN, Second choice; Start 11/23/18 at 16:45; Stop 11/24/18 at 16:44; Status DC Prochlorperazine Edisylate (Compazine) 5 mg PACU PRN PRN IV NAUSEA, MRX1 Last administered on 11/23/18at 19:31; Start 11/23/18 at 16:45; Stop 11/24/18 at 16:44 ; Status DC Fentanyl Citrate (Fentanyl 5ml Vial) 250 mcg STK-MED ONCE .ROUTE ; Start at 16:42; Stop 11/23/18 at 16:43; Status DC Bupivacaine HCl/ Epinephrine Bitart (Sensorcaine-Epi 0.25%-1:[id number] Mpf) 30 ml STK-MED ONCE .ROUTE Last administered on 11/23/18at 17:40; Start 11/23/18 at 16: 52; Stop 11/23/18 at 16:53; Status DC Propofol 20 ml @ As Directed STK-MED ONCE IV ; Start 11/23/18 at 19:08; Stop at 19:09; Status DC Dexamethasone Sodium Phosphate (Decadron) 20 mg STK-MED ONCE .ROUTE ; Start at 19:08; Stop 11/23/18 at 19:09; Status DC Lidocaine HCl (Lidocaine Pf 2% Vial) 5 ml STK-MED ONCE .ROUTE ; Start 11/23/18 at 19:08; Stop 11/23/18 at 19:09; Status DC Ondansetron HCl (Zofran) 4 mg STK-MED ONCE .ROUTE ; Start 11/23/18 at 19:08; Stop 11/23/18 at 19:09; Status DC Sevoflurane (Ultane) 90 ml STK-MED ONCE IH ; Start 11/23/18 at 19:08; Stop 11/23 at 19:09; Status DC Fentanyl Citrate (Fentanyl 2ml Vial) 75 mcg PRN Q2HR PRN IV PAIN Last administered on 11/23/18at 20:58; Start 11/23/18 at 20:30 Oxycodone/ Acetaminophen (Percocet 7.5/ 325) 1 tab PRN Q4HRS PRN PO PAIN Last administered on 11/25/18at 06:30; Start 11/23/18 at 20:30 Ketorolac Tromethamine (Toradol 30mg Vial) 30 mg 1X ONCE IV Last administered on 11/23/18at 23:56; Start 11/23/18 at 21:00; Stop 11/23/18 at 21:01; Status DC Ketorolac Tromethamine (Toradol 15mg Vial) 15 mg PRN Q6HRS PRN IV PAIN Last administered on 11/24/18at 08:15; Start 11/23/18 at 20:30; Stop 11/24/18 at 09:34 ; Status DC Cyclobenzaprine HCl (Flexeril) 10 mg PRN Q6HRS PRN PO MUSCLE SPASMS Last administered on 11/23/18at 20:59; Start 11/23/18 at 20:45 Albuterol Sulfate (Ventolin Neb Soln) 2.5 mg PRN Q4HRS PRN NEB SHORTNESS OF BREATH; Start 11/23/18 at 20:45 Albuterol Sulfate (Ventolin Neb Soln) 2.5 mg RTBID NEB ; Start 11/23/18 at 21:00 ; Stop 11/24/18 at 08:54; Status DC Budesonide (Pulmicort) 0.5 mg RTBID NEB ; Start 11/24/18 at 08:00 Budesonide (Pulmicort) 0.5 mg 1X ONCE NEB ; Start 11/23/18 at 21:00; Stop 11/23 at 21:01; Status DC Fentanyl Citrate (Fentanyl 2ml Vial) 50 mcg PRN Q2HR PRN IV SEVERE PAIN; Start 11/24/18 at 08:30 Ondansetron HCl (Zofran) 4 mg PRN Q6HRS PRN IV NAUSEA/VOMITING; Start 11/24/18 at 08:30 Ondansetron HCl (Zofran Odt) 4 mg PRN Q6HRS PRN PO NAUSEA/VOMITING; Start 11/24 at 08:30 Acetaminophen (Tylenol) 500 mg PRN Q6HRS PRN PO MILD PAIN / TEMP; Start at 08:30 Cyclobenzaprine HCl (Flexeril) 10 mg DAILY PO Last administered on 11/25/18at 08 :09; Start 11/24/18 at 09:00 Duloxetine HCl (Cymbalta) 90 mg DAILY PO Last administered on 11/25/18at 08:09; Start 11/24/18 at 09:00 Diclofenac Sodium (Voltaren) 75 mg DAILY PO Last administered on 11/25/18at 08: 09; Start 11/24/18 at 10:00 Non-Formulary Medication (Fluticasone/ Salmeterol (Advair 250-50 Diskus)) 1 puff BID IH ; Start 11/24/18 at 09:00; Status UNV Gabapentin (Neurontin) 200 mg QHS PO Last administered on 11/24/18at 20:45; Start 11/24/18 at 21:00 Montelukast Sodium (Singulair) 10 mg QHS PO Last administered on 11/24/18at 20: 45; Start 11/24/18 at 21:00 Albuterol Sulfate (Ventolin Neb Soln) 2.5 mg Q6HRS NEB ; Start 11/24/18 at 12:00 Neomycin/ Polymyxin/ Bacitracin (Triple Antibiotic Ointment) 1 pkt PRN BID PRN TP hangnail Last administered on 11/24/18at 10:56; Start 11/24/18 at 10:15 Influenza Virus Vaccine (Afluria Trivalent [id number] Syringe) 0.5 ml ONCE ONCE VAX IM ; Start 11/25/18 at 10:00; Stop 11/25/18 at 10:01; Status DC Active Scripts Active Percocet 7.5-325 Mg Tablet (Oxycodone/Acetaminophen) 1 Each Tablet 1 Tab PO PRN Q4HRS PRN MDD 1 Proair Hfa (Albuterol Sulfate) 8.5 Gm Hfa.aer.ad 2.5 Mg NEB Q6HRS MDD 1 30 Days Reported Cyclobenzaprine Hcl 10 Mg Tablet 1 Tab PO DAILY Diclofenac Sodium 75 Mg Tablet.dr 1 Tab PO DAILY Advair 250-50 Diskus (Fluticasone/Salmeterol) 1 Each Disk.w.dev 1 Puff IH BID Gabapentin 600 Mg Tablet 200 Mg PO HS Cymbalta (Duloxetine Hcl) 30 Mg Capsule.dr 90 Mg PO DAILY Montelukast Sodium Tablet (Montelukast Sodium) 10 Mg Tablet 1 Tab PO DAILY Vitals/I & O Vital Sign - Last 24 Hours 11/24/18 11/24/18 11/24/18 11/24/18 11:16 14:27 15:00 19:00 Temp 97.7 97.9 98.8 97.7 97.9 98.8 Pulse 101 105 108 Resp 16 18 18 B/P (MAP) 128/75 (92) 122/72 (89) 137/71 (93) Pulse Ox 97 97 93 O2 Delivery Room Air Room Air Room Air Room Air 11/24/18 11/24/18 11/24/18 11/24/18 19:53 20:00 21:00 23:00 Temp 97.5 97.5 Pulse 103 Resp 20 18 B/P (MAP) 126/67 (86) Pulse Ox 93 96 O2 Delivery Room Air Room Air Room Air 11/25/18 11/25/18 11/25/18 11/25/18 03:00 06:30 07:00 07:30 Temp 97.6 97.7 97.6 97.7 Pulse 98 84 Resp 18 20 16 B/P (MAP) 118/54 (75) 140/94 (109) Pulse Ox 97 97 O2 Delivery Room Air Room Air Room Air Room Air 11/25/18 08:18 O2 Delivery Room Air BEL WALLACE MD Nov 25, 2018 10:17
[2018-11-25 11:00] VITALS: BP 125/65
[2018-11-25] MEDS: CYCLOBENZAPRINE 10 MG TABLET. PO PRN (14:03)
[2018-11-25 15:00] VITALS: BP 126/63
--- NOTE | 2018-11-25 16:05 | NUR ---
SS following for discharge planning. Walker order received. SS phoned and faxed order for walker to [facility], ; fax [phone]. SS spoke with Harpal Myers from [facility], . Harpal notified SS that walker would be delivered tonight.
--- NOTE | 2018-11-25 17:18 | NUR ---
pt discharged home with self care at 1704 via wheelchair via hubert sen and rekha sam. pt is in stable condition. pt received discharge instructions and prescriptions and stated she had no further questions for me. pt was sent home with crutches and walker will be delivered to her [facility]. pt states she already has wheelchair at home.
== END 2018-11-25 17:04 | disposition home or self-care (01) | DRG 493 ==
LOC: ER 10:39 → 4 NORTH 13:21
PROVIDERS: ADMIT Internal Medicine; ATTEND Internal Medicine
PROC: 0QSG04Z Reposition Right Tibia with Internal Fixation Device, Open Approach (ICD-10-PCS; 2018-11-23)
PROC: 0SSFXZZ Reposition Right Ankle Joint, External Approach (ICD-10-PCS; 2018-11-23)
PROC: 0QSJ04Z Reposition Right Fibula with Internal Fixation Device, Open Approach (ICD-10-PCS; principal; 2018-11-23 16:30)
DX: S82.851A Displaced trimalleolar fracture of right lower leg, initial encounter for closed fracture (principal); Z68.41 Body mass index [BMI] 40.0-44.9, adult; J45.909 Unspecified asthma, uncomplicated; E66.9 Obesity, unspecified; G89.29 Other chronic pain; G25.81 Restless legs syndrome; M19.90 Unspecified osteoarthritis, unspecified site; M54.9 Dorsalgia, unspecified; W00.0XXA Fall on same level due to ice and snow, initial encounter; Y93.01 Activity, walking, marching and hiking; Y92.89 Other specified places as the place of occurrence of the external cause; Y99.8 Other external cause status
CPT/HCPCS: 36415; 73600; 80053; 82306; 85027; 90471; 90756; 94640; 96374; A7015; C1713; J0696; J0780; J1100; J1885; J2001; J2270; J2405; J2704; J3010; J7030; 97110; 97116; 97530; 97535; 99285-25; Q2035